=== PATIENT | female | born 1990 | race African-American/Black ===

== ENCOUNTER 2021-12-03 22:55 | Emergency (ER) | payer SELFPAY ==
[2021-12-03] MEDS ORDERED: AMOXicillin 250 MG CAP ONE (23:36)
[2021-12-03] MEDS ORDERED: predniSONE 20 MG TAB ONE (23:39)
== END 2021-12-04 00:30 | disposition home or self-care (01) ==
LOC: BURERS 22:55
DX: J45.901 Unspecified asthma with (acute) exacerbation (principal); J06.9 Acute upper respiratory infection, unspecified
CPT/HCPCS: 94640; J7512; J7620